=== PATIENT | female | born 1995 | race American Indian/Alaskan Native ===

== ENCOUNTER 2017-09-03 08:08 | Outpatient (CLI) | payer OTHER | END 2017-09-03 10:48 | disposition home or self-care (01) | LOC: NST 08:08 | DX: Z34.83 Encounter for supervision of other normal pregnancy, third trimester (principal); Z3A.38 38 weeks gestation of pregnancy ==

== ENCOUNTER 2017-09-10 08:06 | Outpatient (CLI) | payer OTHER | END 2017-09-10 09:58 | disposition home or self-care (01) | LOC: NST 08:06 | DX: Z34.03 Encounter for supervision of normal first pregnancy, third trimester (principal) ==

== ENCOUNTER 2017-09-16 14:56 | Inpatient (IN) | payer OTHER ==
[~2017-09-16] VITALS: Ht 160 cm; Wt 3.2 kg
[2017-09-16] MEDS ORDERED: PRENATAL TABLE1 EAC1 PO (15:25)
[2017-09-16] MEDS ORDERED: FOLIC ACID1 MG PO (15:26)
[2017-09-20] MEDS ORDERED: IBUPROFEN800 MG PO (11:33)
[2017-09-20] MEDS ORDERED: SURFAK240 M1 PO (11:34)
== END 2017-09-20 14:04 | DRG 766 ==
LOC: OB/GYN 14:56 → LDR 14:56 → O/R 09-17 17:02 → OB/GYN 09-17 20:00
PROVIDERS: Obstetrics & Gynecology
PROC: 3E0P7VZ Introduction of Hormone into Female Reproductive, Via Natural or Artificial Opening (ICD-10-PCS; 2017-09-17)
PROC: 4A1HXCZ Monitoring of Products of Conception, Cardiac Rate, External Approach (ICD-10-PCS; 2017-09-17)
PROC: 10D00Z1 Extraction of Products of Conception, Low, Open Approach (ICD-10-PCS; principal; 2017-09-17 14:00)
DX: O61.0 Failed medical induction of labor (principal); O99.824 Streptococcus B carrier state complicating childbirth; Z3A.40 40 weeks gestation of pregnancy; Z37.0 Single live birth

== ENCOUNTER 2018-04-21 07:00 | Day surgery (SDC) | payer OTHER ==
[~2018-04-21] VITALS: Ht 160 cm; Wt 55.8 kg
[~2018-04-21 07:00] MED LIST: FOLIC ACID1 MG PO; IBUPROFEN800 MG PO; PRENATAL TABLE1 EAC1 PO; SURFAK240 M1 PO
[2018-04-21] MEDS ORDERED: METHYLERGO0.2 MG/11 PO (14:47)
[2018-04-21] MEDS ORDERED: MEFENAMIC ACID250 MG PO (14:48)
[2018-04-21] MEDS ORDERED: ZITHROMAX500 MG PO (14:49)
== END 2018-04-21 13:00 | disposition home or self-care (01) ==
LOC: CIR.AMB 07:00 → ER 08:48 → SEC-K 10:46 → ER 10:46 → O/R 10:46 → EDSTATUS 12:00 → CIR.AMB 13:00 → O/R 15:07 → SEC-K 15:07 → O/R 15:07 → SEC-K 22:05 → O/R 22:05
DX: N92.0 Excessive and frequent menstruation with regular cycle (principal); N93.8 Other specified abnormal uterine and vaginal bleeding; D50.8 Other iron deficiency anemias

== ENCOUNTER 2018-09-21 15:07 | Emergency (ER) | payer OTHER ==
[~2018-09-21] VITALS: Ht 160 cm; Wt 62.6 kg
[~2018-09-21 15:07] MED LIST changes: +MEFENAMIC ACID250 MG PO; +METHYLERGO0.2 MG/11 PO; +ZITHROMAX500 MG PO
== END 2018-09-21 17:25 | disposition home or self-care (01) ==
LOC: ER 15:07
DX: B37.3 Candidiasis of vulva and vagina (principal)